=== PATIENT | male | born 1985 | race Caucasian/White ===

== ENCOUNTER 2019-05-04 12:15 | Emergency (ER) | payer MEDICAID ==
[2019-05-04 12:26] VITALS: BP 132/79; PULSE 98; RESP 16; TEMP 98.2
--- NOTE | 2019-05-04 13:19 | ED ---
Extremity Problem HPI - General Chief complaint: Extremity Problem,Nontraumatic Stated complaint: Knee Injury Time Seen by Provider: 05/04/19 12:28 Source: patient Mode of arrival: ambulatory Limitations: no limitations - History of Present Illness Initial comments: Patient is a 34-year-old male presenting to the emergency Department with complaints of medial right knee pain x 1 day. Patient states he was running yesterday and felt pain in his right knee. Patient denies any trauma to the right knee. Patient describes the pain as constant and located on the medial aspect of the right knee, over pes anserine bursa. Patient states the pain gets worse with complete extension. Patient has not tried anything for the pain. Patient denies any previous injuries to the right knee. Patient denies any fever, chills. No other complaints at this time. - Related Data Allergies Allergy/AdvReac Type Severity Reaction Status Date / Time No Known Allergies Allergy Verified 05/04/19 12:27 Review of Systems ROS Statement: Those systems with pertinent positive or pertinent negative responses have been documented in the HPI. ROS Other: All systems not noted in ROS Statement are negative. Past Medical History Past Medical History: No Reported History History of Any Multi-Drug Resistant Organisms: None Reported Past Surgical History: No Surgical Hx Reported Past Alcohol Use History: Daily Past Drug Use History: None Reported General Exam - General Exam Comments Initial Comments: GENERAL: Well-appearing, well-nourished and in no acute distress. HEAD: Atraumatic, normocephalic. EYES: Pupils equal round and reactive to light, extraocular movements intact, sclera anicteric, conjunctiva are normal. ENT: TMs normal, nares patent, oropharynx clear without exudates. Moist mucous membranes. NECK: Normal range of motion, supple without lymphadenopathy or JVD. LUNGS: Breath sounds clear to auscultation bilaterally and equal. No wheezes rales or rhonchi. HEART: Regular rate and rhythm without murmurs, rubs or gallops. ABDOMEN: Soft, nontender, normoactive bowel sounds. No guarding, no rebound. No masses appreciated. : Deferred EXTREMITIES: Pain on the right knee, over the peds anserine bursa. There is no swelling, erythema present at this time. Patient has pain with full extension and full flexion. NEUROLOGICAL: Cranial nerves II through XII grossly intact. Normal speech, normal gait. PSYCH: Normal mood, normal affect. SKIN: Warm, Dry, normal turgor, no rashes or lesions noted. Limitations: no limitations Course Vital Signs 05/04/19 12:23 Temperature 98.2 F Pulse Rate 98 Respiratory 16 Rate Blood Pressure 132/79 O2 Sat by Pulse 98 Oximetry Medical Decision Making - Medical Decision Making Patient is a 34-year-old male with complaints of right knee pain times one day. Patient denies any trauma to the knee or previous history of injury. Patient has tenderness over the right pes anserine bursa. There are no signs of infection. There is no edema. Patient was counseled on bursitis. Patient will follow up with orthopedics in 1-2 weeks if symptoms continue. Patient was okay with this plan. She'll be discharged. Return parameters were discussed with the patient and he verbalized understanding. Case discussed with Dr. Amin. Disposition Clinical Impression: Right anterior knee pain Disposition: HOME SELF-CARE Condition: Stable Instructions (If sedation given, give patient instructions): Knee Pain (ED) Additional Instructions: Please return to the Emergency Department if symptoms worsen or any other concerns. Follow up with orthopedic as discussed if needed. Is patient prescribed a controlled substance at d/c from ED?: No Referrals: Ricci Sommers MD [Primary Care Provider] - 1-2 days Erwin Ortega DO [Doctor of Osteopathic Medicine] - 1-2 days
== END 2019-05-04 13:43 | disposition home or self-care (01) ==
LOC: EC 12:15
DX: M25.561 Pain in right knee (principal)
CPT/HCPCS: 99283